=== PATIENT | male | born 1975 | race Caucasian/White ===

== ENCOUNTER 2016-09-22 09:03 | Outpatient (CLI) | payer OTHER ==
[2016-09-22 16:31] LABS: ALT (SGPT) 24 U/L (0-55); AST (SGOT) 17 U/L (5-34); Albumin 4.5 g/dL (3.5-5.0); Alkaline Phosphatase 45 U/L (40-150); Anion Gap 14 mmol/L (10-20); BUN (Urea Nitrogen) 17 mg/dL (8.9-20.6); Calc. Creatinine Clearance 0 mL/min (70-130); Calcium 9.5 mg/dL (7.8-10.44); Carbon Dioxide 27 mmol/L (22-29); Cardiac Risk 5.1 (Less than 4.5); Chloride 105 mmol/L (98-107); Cholesterol 250 mg/dL (< 200 Desired); Estimated GFR-MDRD 85; Globulin 2.7 g/dL (2.4-3.5); Glucose 97 mg/dL (70-105); HDL Cholesterol 49 mg/dL (>60 Neg Risk); LDL Cholesterol, Calculated 169 mg/dL; Potassium 4.5 mmol/L (3.5-5.1); Protein, Total 7.2 g/dL (6.0-8.3); Sodium 141 mmol/L (136-145); Triglycerides 162 mg/dL (Less than 150)
[2016-09-22 17:52] LABS: #Basophils 0.1 thou/uL (0.0-0.2); #Eosinphils 0.5 thou/uL (0.0-0.7); #Lymphocytes 1.4 thou/uL (1.20-3.40); #Monocytes 0.6 thou/uL (0.11-0.59); #Neutrophils 2.4 thou/uL (1.40-6.50); %Basophils 1.4 % (0.0-1.0); %Eosinophils 9.4 % (0.0-10.0); %Lymphocytes 28.9 % (21.0-51.0); %Neutrophils 48.3 % (42.0-75.0); Hemoglobin 16.2 g/dL (14.0-18.0); Mean Corpuscular HGB CONC 33.4 g/dL (32.0-36.0); Mean Corpuscular Hemoglobin 31.1 pg (27.0-31.0); Mean Corpuscular Volume 93.3 fl (80.0-94.0); Mean Platelet Volume 5.4 fL (7.4-10.4); Platelet Count 277 thou/uL (130-400); RBC Distribution Width 11.5 % (11.5-14.5); Red Blood Cell (RBC) Count 5.22 mill/uL (4.70-6.10); White Blood Cell (WBC) Count 4.9 thou/uL (4.8-10.8)
== END 2016-09-22 09:04 ==
LOC: LABLEX 09:03
PROVIDERS: ATTEND Family Medicine
DX: Z00.00 Encounter for general adult medical examination without abnormal findings (principal)
CPT/HCPCS: 80053; 80061; 84443; 85025